=== PATIENT | female | born 1995 | race Asian ===

== ENCOUNTER 2016-08-18 17:54 | Inpatient (IN) | payer BC, OTHER ==
[~2016-08-18] VITALS: Ht 172.7 cm; Wt 81.0 kg
[2016-08-18 18:50] LABS: MEAN CELL VOLUME 91.7 fL (80-100); MEAN CORPUSCULAR HEMOGLOBIN 30.4 pg (25-34); MEAN CORPUSCULAR HGB CONC 33.2 g/dl (32-36); PLATELET COUNT 290 K/uL (130-400); RED BLOOD COUNT 4.47 M/uL (4.2-5.4); WHITE BLOOD COUNT 8.15 K/uL (4.8-10.8)
[2016-08-18 19:08] LABS: ALT/SGPT 24 U/L (12-78); AST/SGOT 15 U/L (15-37); BLOOD UREA NITROGEN 12 mg/dl (7-18); BUN/CREATININE RATIO 13.8 (10-20); CALCIUM 8.5 mg/dl (8.5-10.1); CARBON DIOXIDE 30 mmol/L (21-32); CHLORIDE 109 mmol/L (98-107); GLUCOSE 87 mg/dl (70-99); POTASSIUM 4.2 mmol/L (3.5-5.1); SODIUM 144 mmol/L (136-145)
[2016-08-18 19:08] LABS: ACETAMINOPHEN < 2 ug/ml (10-30)
[2016-08-18 19:15] LABS: BENZODIAZEPINE, URINE NEG (NEG); COCAINE,URINE NEG (NEG); PHENCYCLIDINE, URINE NEG (NEG)
[2016-08-18 19:19] LABS: ALKALINE PHOSPHATASE 34 U/L (45-117); THYROID STIMULATING HORMONE 0.182 uIu/ml (0.300-4.500)
[2016-08-18] MEDS ORDERED: NURSING VERBAL MED ORDER ONE (21:30)
[2016-08-18 21:33] VITALS: O2SAT 99
[2016-08-18] MEDS ORDERED: ALUMINUM/MAGNESIUM SUSP 30 ML UDC PO PRN (21:45)
[2016-08-18] MEDS ORDERED: SODIUM CHLORIDE 0.65% NA SOLN 45 ML (OCEAN) PRN (21:45)
[2016-08-18] MEDS ORDERED: BISMUTH SUBSALICYLATE PER ML OMNICELL CHARGE PO PRN (21:45)
[2016-08-18] MEDS ORDERED: MAGNESIUM HYDROXIDE SUSP 30 ML UDC PO PRN (21:45)
[2016-08-18] MEDS ORDERED: ACETAMINOPHEN 325 MG TAB PO PRN (21:45)
[2016-08-18 22:21] VITALS: BP 120/80; PULSE 80; TEMP 36.7; Ht 172.7 cm; Wt 81.0 kg
[2016-08-19] MEDS: hydrOXYzine HCL 25 MG TAB PO PRN (00:43)
--- NOTE | 2016-08-19 01:54 | EMERGENCY ROOM VISIT NOTE ---
History Report prepared by Logan: Richa Rojo Under the Supervision of: Dr. Blake Johnson M.D. First contact with patient: 18:03 Chief Complaint: MENTAL HEALTH EVALUATION Stated Complaint: ANXIETY - DEPRESSION - UNEASYNESS History of Present Illness The patient is a 21 year old female who presents to the Emergency Room with complaints of increased anxiety beginning yesterday. The patient states that last night she had an anxiety attack and again this morning during class had one also. She states that she began to panic and did try to calm herself down. The patient has a history of anxiety, depression and eating disorders since she was in middle school. She states that she use to be on Prozac but has been off for the past year. She felt it was not helping her. The patient notes that she does not have a counselor. She is currently a [employer] student and did go to [facility] last year however has not continued with their services. The patient states that "she feels something is wrong" and feels "uneasy". Last week she notes she had an episode of dry heaving due to feeling uneasy. She does have Thyroid issues but stopped taking her Thyroid medication a few months ago due to thinking they are not working or making a difference. The patient denies suicidal or homicidal ideations, drug use, excess alcohol use, or recent fevers. Source of History: patient Onset: yesterday Position: other (global) Quality: other (anxiety) Timing: intermittent, worsening Associated Symptoms: No fevers Note: The patient denies suicidal or homicidal ideations, drug use, or excess alcohol use. Review of Systems See HPI for pertinent positives & negatives. A total of 10 systems reviewed and were otherwise negative. Past Medical & Surgical Medical Problems: (1) Anorexia (2) Anxiety (3) Bulimia (4) Depression Family History No pertinent family history Social History Smoking Status: Current Some Day Smoker Alcohol Use: occasionally Drug Use: none Marital Status: single Housing Status: lives with roommate Occupation Status: [employer] student Current/Historical Medications No Active Prescriptions or Reported Meds Allergies Coded Allergies: No Known Allergies (Unverified , 08/18/16) Physical Exam Vital Signs Date Time Temp Pulse Resp B/P Pulse Ox O2 Delivery O2 Flow Rate FiO2 08/18/16 17:59 36.7 96 16 122/88 98 Room Air Physical Exam Constitutional: Vital signs reviewed. Eyes: Pupils are equal round reactive to light. Conjunctiva are noninjected. ENT: Pharynx is clear without erythema or exudate. Mucous membranes are moist. Neck supple without meningeal signs. Respiratory: Clear to auscultation bilaterally. Breath sounds are equal bilaterally. Cardiovascular: Regular rate and rhythm. No rubs or gallops. GI: Soft, nondistended and nontender. Bowel sounds are present. Musculoskeletal: No peripheral edema. No lower extremity tenderness. Integumentary: No cyanosis. Neurological: The patient is awake and alert. No focal deficits. Psychiatric: Anxious, sometimes tearful. Medical Decision & Procedures Laboratory Results 08/18/16 18:35 08/18/16 18:34 Test 08/18/16 18:20 08/18/16 18:34 08/18/16 18:35 Urine Test NEG (NEG) Urine Opiates Screen NEG (NEG) Urine Methadone, Qualitative NEG (NEG) Urine Barbiturates NEG (NEG) Urine Phencyclidine (PCP) Level NEG (NEG) Ur Amphetamine/Methamphetamine NEG (NEG) MDMA (Ecstasy) Screen NEG (NEG) Urine Benzodiazepines Screen NEG (NEG) Urine Cocaine Metabolite NEG (NEG) Urine Marijuana (THC) POS (NEG) Anion Gap 5.0 mmol/L (3-11) Est Creatinine Clear Calc Drug Dose 109.5 ml/min Estimated GFR () 105.2 Estimated GFR (Non- 90.8 BUN/Creatinine Ratio 13.8 (10-20) Calcium Level 8.5 mg/dl (8.5-10.1) Total Bilirubin 0.3 mg/dl (0.2-1) Direct Bilirubin < 0.1 mg/dl (0-0.2) Aspartate Amino Transf (AST/SGOT) 15 U/L (15-37) Alanine Aminotransferase (ALT/SGPT) 24 U/L (12-78) Alkaline Phosphatase 34 U/L (45-117) Total Protein 6.5 gm/dl (6.4-8.2) Albumin 3.2 gm/dl (3.4-5.0) Thyroid Stimulating Hormone (TSH) 0.182 uIu/ml (0.300-4.500) Free Thyroxine 0.96 ng/dl (0.80-1.60) Red Blood Count 4.47 M/uL (4.2-5.4) Mean Corpuscular Volume 91.7 fL (80-100) Mean Corpuscular Hemoglobin 30.4 pg (25-34) Mean Corpuscular Hemoglobin Concent 33.2 g/dl (32-36) RDW Standard Deviation 45.2 fL (36.4-46.3) RDW Coefficient of Variation 13.4 % (11.5-14.5) Mean Platelet Volume 10.0 fL (7.4-10.4) Salicylates Level < 1.7 mg/dl (2.8-20) Acetaminophen Level < 2 ug/ml (10-30) Ethyl Alcohol mg/dL < 3.0 mg/dl (0-3) Laboratory results as reviewed by me. ED Course 1804: The patient was evaluated in room A6. A complete history and physical exam was performed. 1941: I reevaluated the patient. She is calmer now. I discussed her test results with her. The mental health leather case finisher is talking with the patient now. 2015: The patient became extremely anxious and emotional when evaluated by leather case finisher. She would like to be admitted. [facility] will evaluate the patient. 2042: The patient will be admitted to [facility] for further evaluation. Medical Decision This is a 21-year-old female presents with anxiety. I did perform a limited focused review of portions of the patient's old chart on the electronic medical record. The patient has had no recent pertinent visits to this hospital. I did evaluate the patient as noted above. The patient is presenting with increased anxiety. She is a prior history of anxiety and depression. She denies any homicidal or suicidal ideation. She has stopped taking her Prozac as well as her thyroid medication. I did order and review the patient's blood work as noted in the electronic medical record. Her TSH is low but her free T4 is normal. I did discuss the test results with the patient. She was assessed by the mental health master ocean. The patient very strongly wanted to be hospitalized for her anxiety and depression and so she was evaluated by 3 S. and admitted to the behavioral unit. Impression Primary Impression: Mood disorder Additional Impression: Anxiety Scribe Attestation The scribe's documentation has been prepared under my direct and personally reviewed by me in its entirety. I confirm that the note above accurately reflects all work, treatment, procedures, and medical decision making performed by me. Departure Information Dispostion Mental Health Acute Care Prescriptions No Active Prescriptions or Reported Meds Referrals No Doctor, Assigned (PCP) Problem Qualifiers
[2016-08-19 07:03] VITALS: BP_SYST 110; BP_SYST 113; BP_DIAS 65; BP_DIAS 75; PULSE 49; PULSE 67; TEMP 36.6
[2016-08-19] MEDS ORDERED: ESCITALOPRAM OXALATE 10 MG TAB PO ONE (11:18)
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
[2016-08-20] MEDS: hydrOXYzine HCL 25 MG TAB PO PRN ×4 (00:02→22:48)
[2016-08-20 06:52] VITALS: BP_SYST 108; BP_SYST 111; BP_DIAS 73; BP_DIAS 75; PULSE 59; PULSE 75; TEMP 36.5
[2016-08-20] MEDS: ESCITALOPRAM OXALATE 10 MG TAB PO SCH (09:10)
--- NOTE | 2016-08-20 12:06 | Psychiatric Progress Notes ---
Progress Note Date of Service Aug 20, 2016. Chief Complaint "I really want to get help". Subjective Patient was seen & assessed interval progress reviewed with Treatment Team. Per staff, pt was expressing passive wish yesterday. Lexapro started and increased this am. Attending groups. Rated mood 7/10 and "ok" last pm. Today she reports continued severe anxiety. Reviewed this seems to be getting worse over last year, possibly associated with giving up the purging. She describes long standing dislike of self. Very poor self image. All or nothing thinking and retreats from responsibilities if any evidence of failure. She expresses gratitude for help she has already received her and perceives benefit, but complains that her anxiety remains quite distressing. Did get some benefit from the vistaril prn and encouraged to utilize. She is uncertain if she yet feels safe to consider discharge. She reports mild constipation but otherwise denies concern for SE associated with ssri so far. Review of Systems Constitutional: + fatigue Abdomen: + constipation Psychiatric: + anxiety Sleep Information Total Hours of Sleep: 5.50 Meal Information Percent of Breakfast Consumed: 25 Percent of Lunch Consumed: 100 Percent of Dinner Consumed: 100 Mental Status Exam During interview pt is: alert and oriented Appearance: appropriately dressed, appropriately groomed Eye contact is: good Motor behavior is: steady gait & station, no abnormal motor movements Speech: other (hyperverbal but not pressured) Affect: mood congruent, anxious Mood is: depressed, anxious Thought process: goal directed Thought content: reality based without delusions Suicidal thought are: denied Homicidal thoughts are: denied Hallucinations: denies auditory, denies visual Cognition: memory grossly intact, attention grossly intact Intelligence estimated to be: average Insight: limited Judgement: limited Impression 21-year-old [employer] student who presents to the hospital with severe anxiety and depression. She stopped taking her thyroid medications for hyperthyroidism over a month ago and some of her anxiety may be in the context of this noncompliance. She does not know what she was taking and will get the prescription bottle brought in. Despite that, she has a long history of anxiety starting when she was a child and has had several trials of Prozac without success. We will trial her on Lexapro 5 mg today increasing to 10 mg tomorrow. Risks, benefits and alternatives were reviewed including the risk for worsening depression and suicidal thinking and young people. She accepts this and wishes to proceed. She also has been abusing alcohol and marijuana as a means to cope with her anxiety. I recommended she abstain from both of these for the foreseeable future. She will be a fifth year senior at [employer] and will require local psychiatric care which she is willing to accept. At this time however she requires inpatient mental health treatment due to the severity of her condition, inability to feel safe with herself outside of the hospital. Plan (1) Depression 08/19 - Start Lexapro 5 mg today increasing to 10 mg tomorrow - Every 15 minute checks for safety -Encourage participation in group and individual counseling -Family meeting -The patient will need local psychiatric providers both a prescriber and a therapist -Assist the patient to learn and utilize healthy coping strategies 08/20 - lexapro increased to 10 today - unable to CFS yet today (2) Anxiety 08/19 -Patient's TSH is low, with low normal T4. Patient had been on medicines for what she believes to be hyperthyroidism. If so will restart after she has her prescription brought in. -The patient has had chronic anxiety since she was a small child despite her thyroid status. Assist the patient to learn and utilize healthy coping strategies -Expose the patient to mindfulness techniques, relaxation, deep breathing exercises -Will use Vistaril when necessary for anxiety and sleep 08/20 - encouraged to utilize the vistaril prn for acute anxiety and reviewed deep breathing, positive thinking, distraction for self de-escalation (3) Hyperthyroidism 08/19 -Patient reports she has taken medicine for hyperthyroidism. Will have her medications brought in. She stopped them herself a month ago TSH is low and T4 is low normal - (4) Cannabis abuse 08/19 Recommend abstinence- (5) Alcohol abuse 08/19 -Recommend abstinence for the foreseeable future The plan has been reviewed with Dr. Imelda nuñez Discharge / Aftercare Planning Primary Care Physician: Name: [facility] Therapist: Name: None Visit Code E&M Code: 00732 Inventory Assets Strengths: Intelligence, willingness to engage in treatment Needs: To abstain from drugs and alcohol Risk Factors Assessment : No /single/: Yes Higher / Fall in social status: No Health problems: Yes Mental Health Diagnoses: Yes Substance use disorders: Yes Previous attempt: No Previous psychiatric stay: Yes Hopelessness: No Smoker: Yes Protective Factors Assessment Methodist beliefs: Yes : No Responsible for young children: No Employed: No Stable relationships: Yes Supportive family: Yes Data Vital Signs Last 24 Hrs: Date Time Temp Pulse Resp B/P Pulse Ox O2 Delivery O2 Flow Rate FiO2 08/20/16 06:52 36.5 59 16 108/73 75 111/75 Meds Administered Last 24 Hrs: Meds Administered (Past 24Hrs) Medications (Trade) Dose Ordered Sig/Rojas Route Start Time Stop Time Status Last Admin Dose Admin Acetaminophen (Tylenol Tab) 650 mg Q4H PRN PO 08/18/16 21:45 09/17/16 21:44 08/19/16 21:22 650 MG Hydroxyzine HCl (Vistaril Tab) 50 mg HSZ PRN PO 08/18/16 21:45 09/17/16 21:44 08/19/16 00:43 50 MG Hydroxyzine HCl (Vistaril Tab) 25 mg Q4H PRN PO 08/18/16 21:45 09/17/16 21:44 08/20/16 00:02 25 MG Escitalopram Oxalate (Lexapro Tab) 10 mg QAM PO 08/20/16 09:00 09/19/16 08:59 08/20/16 09:10 10 MG Escitalopram Oxalate (Lexapro Tab) 10 mg 1118 ONCE PO 08/19/16 11:18 08/19/16 11:23 DC 08/19/16 12:01 10 MG Problem Qualifiers (1) Depression: Depression Type: major depressive disorder
[2016-08-20] MEDS ORDERED: NURSING VERBAL MED ORDER ONE (15:00)
[2016-08-20] MEDS ORDERED: hydrOXYzine HCL 25 MG TAB PO ONE (15:30)
[2016-08-21 06:36] VITALS: BP_SYST 107; BP_SYST 110; BP_DIAS 71; BP_DIAS 77; PULSE 58; PULSE 64; TEMP 36.5
[2016-08-21] MEDS: ESCITALOPRAM OXALATE 10 MG TAB PO SCH (09:08)
[2016-08-21] MEDS ORDERED: LXP10 PO (09:34)
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
== END 2016-08-21 15:43 | disposition home or self-care (01) | DRG 881 ==
LOC: ENRESERVDT → ENRESERVTM → C.EDB 17:59 → C.MHU 21:27
PROVIDERS: ADMIT Psychiatry & Neurology Psychiatry; ATTEND Psychiatry & Neurology Child & Adolescent Psychiatry
DX: F32.9 Major depressive disorder, single episode, unspecified (principal); F41.9 Anxiety disorder, unspecified; Z62.810 Personal history of physical and sexual abuse in childhood; G43.909 Migraine, unspecified, not intractable, without status migrainosus; E05.90 Thyrotoxicosis, unspecified without thyrotoxic crisis or storm; Z81.8 Family history of other mental and behavioral disorders; F17.210 Nicotine dependence, cigarettes, uncomplicated; Z62.811 Personal history of psychological abuse in childhood; K59.00 Constipation, unspecified; Z91.14 Patient's other noncompliance with medication regimen; F10.10 Alcohol abuse, uncomplicated; F12.10 Cannabis abuse, uncomplicated